=== PATIENT | male | born 1950 | race Caucasian/White ===

== ENCOUNTER 2016-11-04 11:59 | Observation (INO) | payer OTHER ==
[2016-11-04] VITALS (7 sets, daily range): BP systolic 138–165; BP diastolic 75–86; PULSE 58–68; RESP 18–20; TEMP 97.9–99.1; O2SAT 94–99
[~2016-11-04] VITALS: Ht 182.9 cm; Wt 95.0 kg
[~2016-11-04 11:59] MED LIST: ADVI200C9 PO; B COTAB3 PO; GLUC500C56 PO; TAB-TAB PO; VITA500T10 PO; ZOCO80TA PO
--- NOTE | 2016-11-04 12:03 | PD ---
Physical Exam Date Seen by Provider: Nov 04, 2016 Time Seen by Provider: 12:02 Narrative 65 yo male here for chest pain x 10 days. Nothing makes it better. Not going away which is what worried him. Worst with deep breaths. Pain is 4/10. he thought he might have pulled a muscle. No other complaints. Vitals are stable in triage. Awaiting bed placement. Data Data Last Documented VS Vital Signs Date Time Temp Pulse Resp B/P Pulse Ox O2 Delivery O2 Flow Rate FiO2 11/04/16 12:01 97.9 68 20 163/86 99 Room Air [facility] Medical Record Reviewed: Yes Supervised Visit with ROCKY: No Santos Hoff Nov 04, 2016 12:03
--- NOTE | 2016-11-04 12:10 | PD ---
HPI . chest pain for 10 days Chief Complaint: Chest Pain Time Seen by Provider: 12:10 Travel History International Travel<30 days: No Contact w/Intl Traveler<30days: No Traveled to known affect area: No History of Present Illness HPI 65-year-old male with history of hyperlipidemia here with complaints of chest pain that has been constant for the past 10 days. Patient says that he is fighting some type of flulike illness and has been coughing intermittently. The chest pain is located substernally without radiation elsewhere. He rates the pain as 4-5/10. He denies any nausea, vomiting or diaphoresis. He also denies any shortness of breath. He has no other complaints. His primary care providers Dr. Edwards. He has also seen Dr. Aguayo in the past for cardiac workup. He tells me that about 5-6 years ago he had a full cardiac workup that was negative. 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) Diabetes: No Glaucoma: No Hepatitis: No Hiatal Hernia: No Hypertension: No Thyroid Disease: No Past Surgical History Abdominal Surgery: Yes (APPENDECTOMY CHILDHOOD) Genitourinary Surgery: Yes (1998 TUR-BT) Pacemaker: No Social History Alcohol Use: Yes (SOCIALLY) Tobacco Use: Yes Allergies-Medications (Allergen,Severity, Reaction): Coded Allergies: Penicillin (Verified Allergy, Unknown, 11/04/16) Reported Meds & Prescriptions Reported Meds & Active Scripts Active Review of Systems General / Constitutional: No: Fever Eyes: No: Visual changes HENT: No: Headaches Cardiovascular: Positive: Chest Pain or Discomfort Respiratory: Positive: Cough, No: Shortness of Breath Gastrointestinal: No: Abdominal Pain Genitourinary: No: Dysuria Musculoskeletal: No: Pain Skin: No Rash Neurologic: No: Weakness Psychiatric: No: Depression Endocrine: No: Polydipsia Hematologic/Lymphatic: No: Easy Bruising Physical Exam Narrative GENERAL: AAO x 3, no acute distress, Well-nourished, well-developed patient. SKIN: Warm and dry. No visible rashes or bruising. HEAD: Normocephalic and atraumatic. EYES: No scleral icterus. No injection or drainage. EOM intact, PERRLA ENT: No nasal drainage noted. Mucous membranes pink. Airway patent. NECK: Supple, trachea midline. No JVD. CARDIOVASCULAR: Regular rate and rhythm without murmurs, gallops, or rubs. non- reproducible chest pain RESPIRATORY: Breath sounds equal bilaterally. No accessory muscle use. No rhonchi or rales. GASTROINTESTINAL: Abdomen soft, non-tender, nondistended. no rebound or guarding EXTREMITIES: No cyanosis or edema. BACK: No obvious deformity. 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 Data Data Last Documented VS Vital Signs Date Time Temp Pulse Resp B/P Pulse Ox O2 Delivery O2 Flow Rate FiO2 11/04/16 12:15 65 156/84 156/84 11/04/16 12:14 18 98 Room Air 11/04/16 12:01 97.9 Orders Electrocardiogram (11/04/16 12:10) Basic Metabolic Panel (Bmp) (11/04/16 12:10) Ckmb (Isoenzyme) Profile (11/04/16 12:10) Complete Blood Count With Diff (11/04/16 12:10) Magnesium (Mg) (11/04/16 12:10) Prothrombin Time / Inr (Pt) (11/04/16 12:10) Act Partial Throm Time (Ptt) (11/04/16 12:10) Troponin I (11/04/16 12:10) Chest, Single Ap (11/04/16 12:10) Ecg Monitoring (11/04/16 12:10) Bilateral Bp Monitoring (11/04/16 12:10) Iv Access Insert/Monitor (11/04/16 12:10) Oximetry (11/04/16 12:10) Oxygen Administration (11/04/16 12:10) Sodium Chloride 0.9% Flush (Ns Flush) (11/04/16 12:15) CKMB (11/04/16 12:18) CKMB% (11/04/16 12:18) Ns (Bolus) Inj (11/04/16 13:30) Labs Laboratory Tests Test 11/04/16 12:18 White Blood Count 5.6 TH/MM3 Red Blood Count 5.45 MIL/MM3 Hemoglobin 16.4 GM/DL Hematocrit 48.0 % Mean Corpuscular Volume 88.1 FL Mean Corpuscular Hemoglobin 30.1 PG Mean Corpuscular Hemoglobin 34.2 % Concent Red Cell Distribution Width 14.1 % Platelet Count 174 TH/MM3 Mean Platelet Volume 8.2 FL Neutrophils (%) (Auto) 44.7 % Lymphocytes (%) (Auto) 43.9 % Monocytes (%) (Auto) 7.6 % Eosinophils (%) (Auto) 3.2 % Basophils (%) (Auto) 0.6 % Neutrophils # (Auto) 2.5 TH/MM3 Lymphocytes # (Auto) 2.5 TH/MM3 Monocytes # (Auto) 0.4 TH/MM3 Eosinophils # (Auto) 0.2 TH/MM3 Basophils # (Auto) 0.0 TH/MM3 CBC Comment DIFF FINAL Differential Comment Prothrombin Time 10.6 SEC Prothromb Time International 1.0 RATIO Ratio Activated Partial 31.2 SEC Thromboplast Time Sodium Level 138 MEQ/L Potassium Level 4.1 MEQ/L Chloride Level 106 MEQ/L Carbon Dioxide Level 25.5 MEQ/L Anion Gap 7 MEQ/L Blood Urea Nitrogen 21 MG/DL Creatinine 1.37 MG/DL Estimat Glomerular Filtration 52 ML/MIN Rate Random Glucose 98 MG/DL Calcium Level 9.1 MG/DL Magnesium Level 2.1 MG/DL Total Creatine Kinase 150 U/L Troponin I LESS THAN 0.02 NG/ML MDM Medical Decision Making Medical Screen Exam Complete: Yes Emergency Medical Condition: Yes Medical Record Reviewed: Yes Differential Diagnosis bronchitis, Angina, ACS, Narrative Course 65-year-old male here with complaints of 10 days worth of chest pain. IV access obtained. Patient placed on continuous cardiac monitoring and pulse oximetry. EKG has been ordered. It was reviewed by Dr. Frey. Labs and imaging have been ordered. Last Impressions Chest X-Ray 11/04/16 1210 Signed Impressions: Service Date/Time: Friday, November 04, 2016 12:32 - CONCLUSION: No acute disease. Galen Cerda MD Laboratory Tests Test 11/04/16 12:18 White Blood Count 5.6 TH/MM3 Red Blood Count 5.45 MIL/MM3 Hemoglobin 16.4 GM/DL Hematocrit 48.0 % Mean Corpuscular Volume 88.1 FL Mean Corpuscular Hemoglobin 30.1 PG Mean Corpuscular Hemoglobin 34.2 % Concent Red Cell Distribution Width 14.1 % Platelet Count 174 TH/MM3 Mean Platelet Volume 8.2 FL Neutrophils (%) (Auto) 44.7 % Lymphocytes (%) (Auto) 43.9 % Monocytes (%) (Auto) 7.6 % Eosinophils (%) (Auto) 3.2 % Basophils (%) (Auto) 0.6 % Neutrophils # (Auto) 2.5 TH/MM3 Lymphocytes # (Auto) 2.5 TH/MM3 Monocytes # (Auto) 0.4 TH/MM3 Eosinophils # (Auto) 0.2 TH/MM3 Basophils # (Auto) 0.0 TH/MM3 CBC Comment DIFF FINAL Differential Comment Prothrombin Time 10.6 SEC Prothromb Time International 1.0 RATIO Ratio Activated Partial 31.2 SEC Thromboplast Time Sodium Level 138 MEQ/L Potassium Level 4.1 MEQ/L Chloride Level 106 MEQ/L Carbon Dioxide Level 25.5 MEQ/L Anion Gap 7 MEQ/L Blood Urea Nitrogen 21 MG/DL Creatinine 1.37 MG/DL Estimat Glomerular Filtration 52 ML/MIN Rate Random Glucose 98 MG/DL Calcium Level 9.1 MG/DL Magnesium Level 2.1 MG/DL Total Creatine Kinase 150 U/L Troponin I LESS THAN 0.02 NG/ML Discussed results with patient and recommend admission the chest pain center for overnight observation. He does carry some risk factors of tobaccoism, HTN, and HLD. 1323: Discussed with Dr. Edwards. Patient will follow-up with him after hospital workup. Case discussed with my attending Dr. Frey. Patient verbalized understanding of instructions, questions were answered, and thanked me for their care. Diagnosis Primary Impression: Chest pain Qualified Code: R07.9 - Chest pain, unspecified type Admitting Information Admitting Physician Requests: Admit Condition: Stable Alecia Jovel Nov 04, 2016 12:10
[2016-11-04] MEDS ORDERED: SODIUM CHLORIDE 0.9% FLUSH 10 ML FLUSH IVF PRN (12:15)
[2016-11-04 12:42] LABS: AUTOMATED NEUTROPHIL # 2.5 TH/MM3 (1.8-7.7); BASOPHIL % 0.6 % (0.0-2.0); EOSINOPHIL # 0.2 TH/MM3 (0-0.4); EOSINOPHIL % 3.2 % (0.0-4.0); HEMO FLAGS DIFF FINAL; LYMPH % 43.9 % (9.0-44.0); LYMPHOCYTE # 2.5 TH/MM3 (1.0-4.8); MEAN CELL VOLUME 88.1 FL (80.0-100.0); MEAN CORPUSCULAR HEMOGLOBIN 30.1 PG (27.0-34.0); MEAN CORPUSCULAR HGB CONC 34.2 % (32.0-36.0); MONO % 7.6 % (0.0-8.0); NEUT % 44.7 % (16.0-70.0); PLATELET COUNT 174 TH/MM3 (150-450); RED BLOOD COUNT 5.45 MIL/MM3 (4.50-5.90); RED CELL DISTRIBUTION WIDTH 14.1 % (11.6-17.2); WHITE BLOOD COUNT 5.6 TH/MM3 (4.0-11.0)
[2016-11-04 12:48] LABS: APTT (PATIENT) 31.2 SEC (24.3-30.1); PROTHROMBIN TIME - PATIENT 10.6 SEC (9.8-11.6)
--- NOTE | 2016-11-04 13:06 | RADRPT ---
EXAM DATE/TIME: 11/04/2016 12:32 [facility] COMPARISON: No previous studies available for comparison. INDICATIONS : Chest pain for several hours. MEDICAL HISTORY : None. SURGICAL HISTORY : None. ENCOUNTER: Initial ACUITY: 1 day PAIN SCORE: 7/10 LOCATION: Bilateral mid chest FINDINGS: A single view of the chest demonstrates the lungs to be symmetrically aerated without evidence of mas s, infiltrate or effusion. The cardiomediastinal contours are unremarkable. Osseous structures are intact. CONCLUSION: No acute disease. Galen Cerda MD on November 04, 2016 at 13:04 Board Certified Radiologist. This report was verified electronically.
[2016-11-04 13:10] LABS: ANION GAP 7 MEQ/L (5-15); BICARBONATE 25.5 MEQ/L (21.0-32.0); BLOOD UREA NITROGEN 21 MG/DL (7-18); CHLORIDE 106 MEQ/L (98-107); GLOMERULAR FILTRATION RATE 52 ML/MIN (>89); MAGNESIUM 2.1 MG/DL (1.5-2.5); POTASSIUM 4.1 MEQ/L (3.5-5.1); SODIUM (NA) 138 MEQ/L (136-145)
[2016-11-04 13:13] LABS: CREATINE KINASE 150 U/L (39-308)
[2016-11-04 13:25] LABS: CKMB 0.9 NG/ML (0.5-3.6)
[2016-11-04] MEDS ORDERED: SODIUM CHLOR 0.9% 1000 ML INJ 1,000 ML IV ONE (13:30)
[2016-11-04] MEDS ORDERED: [UNRECOGNIZED DRUG - REMARK] (14:27)
[2016-11-04] MEDS ORDERED: ONDANSETRON HCL 4 MG/2 ML VIAL IV PRN (15:45)
[2016-11-04] MEDS ORDERED: ALPRAZolam 0.25 MG TAB PO PRN (15:45)
[2016-11-04] MEDS ORDERED: ACETAMINOPHEN 500 MG CPLT PO PRN (15:45)
[2016-11-04] MEDS ORDERED: SODIUM CHLORIDE 0.9% FLUSH 5 ML FLUSH IVF PRN (15:45)
[2016-11-04] MEDS ORDERED: ACETAMINOPHEN/HYDROcodone 325 MG/7.5 MG TAB PO PRN (15:45)
--- NOTE | 2016-11-04 16:15 | HHI.HP ---
HPI Primary Care Physician Wilder Edwards MD Chief Complaint Chest pain History of Present Illness This is a 65-year-old male that presents to the ED with a complaint of 10 days of intermittent chest discomfort. The discomfort is just to the right of the center of his chest. He describes as a tightness. It last 10-20 seconds. Over last couple days it is been occurring quite often throughout the day with each episode lasting 10-20 seconds. No associated shortness breath, nausea, or diaphoresis. He also states her last 4 days had a cough. For the most part nonproductive but occasionally yellow color mucus will be produced. Denies fevers. Denies recent travel. Denies history of CAD. He states he had a stress test with Dr. Aguayo 4 years ago and states that it was okay and has not followed her since. He states he spoke with his PCP today who advised him to come to the ED. Review of Systems General: Patient denies fevers, chills recent, and recent travel HEENT: Patient denies headache, sore throat, difficulty swallowing. Cardiovascular: Has the chest discomfort as mentioned above. Denies sensation of heart beating rapidly or irregularly. No syncope. Denies diaphoresis. Respiratory: Denies shortness of breath or inspirational chest discomfort. Denies coughing wheezing or hemoptysis. GI: Patient denies nausea, vomiting, diarrhea, abdominal pain, bloody stools. Musculoskeletal: Patient denies joint pain or edema. Denies calf pain or edema. Neurovascular: Patient denies numbness, tingling, weakness in extremities. Denies headache. Endocrine: Denies polyuria and polydipsia. Hematologic: Denies easy bruising. Skin: Denies rash or itching. Past Family Social History Allergies: Coded Allergies: Penicillin (Verified Allergy, Unknown, 11/04/16) Past Medical History Hyperlipidemia and tobacco abuse. Denies hypertension, diabetes, and known CAD. Past Surgical History Noncontributory. Reported Medications Reported Meds & Active Scripts Active Reported [Unknown Statin ] Unknown Dose Active Ordered Medications Current Medications Medications (Trade) Dose Ordered Sig/Yulia Route Start Time Stop Time Status Last Admin (NS Flush) 2 ml UNSCH PRN IVF 11/04/16 15:45 (NS Flush) 2 ml BID IVF 11/04/16 21:00 (Tylenol) 500 mg Q4H PRN PO 11/04/16 15:45 ([place] 7.5-325 Mg) 1 tab Q4H PRN PO 11/04/16 15:45 (Zofran Inj) 4 mg Q6H PRN IV 11/04/16 15:45 (Aspirin) 325 mg DAILY PO 11/05/16 09:00 (Xanax) 0.25 mg Q8H PRN PO 11/04/16 15:45 Family History Denies family history of CAD. Social History Patient smokes currently one half pack of cigarettes daily for 2 years but prior that he smoked one pack of cigarettes daily for 40 years. Rarely has alcohol. Denies illicit drugs. Physical Exam Vital Signs Vital Signs Date Time Temp Pulse Resp B/P Pulse Ox O2 Delivery O2 Flow Rate FiO2 11/04/16 15:12 98.9 58 18 153/78 98 11/04/16 14:08 60 18 165/80 97 Room Air 11/04/16 12:15 65 156/84 156/84 11/04/16 12:14 18 98 Room Air 11/04/16 12:08 99 Room Air 11/04/16 12:01 97.9 68 20 163/86 99 Room Air Physical Exam GENERAL: This is a well-nourished, well-developed patient, in no apparent distress. Patient speaks in clear complete sentences. Patient is pleasant. HEENT: Head is atraumatic and normocephalic. Neck is supple without lymphadenopathy and trachea is midline. No JVD or carotid bruits. CARDIOVASCULAR: Regular rate and rhythm without murmurs, gallops, or rubs. RESPIRATORY: Clear to auscultation. Breath sounds equal bilaterally. No wheezes , rales, or rhonchi. Chest wall is tender with palpation and twisting of the torso. No use of accessory muscles. GASTROINTESTINAL: Abdomen is nontender, nondistended. Abdomen soft. No obvious pulsatile mass or bruit. No CVA tenderness. Strong femoral pulses bilaterally. Normal bowel sounds in all quadrants. MUSCULOSKELETAL: Patient is moving upper and lower extremities freely. No calf tenderness or edema, no Homans sign. Strong pulses in upper and lower extremities. NEUROLOGICAL: Patient is alert and oriented. Cranial nerves 2-12 are grossly intact. No focal deficits and speech is clear. SKIN: No rash and turgor is normal. Laboratory Laboratory Tests Test 11/04/16 12:18 White Blood Count 5.6 Red Blood Count 5.45 Hemoglobin 16.4 Hematocrit 48.0 Mean Corpuscular Volume 88.1 Mean Corpuscular Hemoglobin 30.1 Mean Corpuscular Hemoglobin 34.2 Concent Red Cell Distribution Width 14.1 Platelet Count 174 Mean Platelet Volume 8.2 Neutrophils (%) (Auto) 44.7 Lymphocytes (%) (Auto) 43.9 Monocytes (%) (Auto) 7.6 Eosinophils (%) (Auto) 3.2 Basophils (%) (Auto) 0.6 Neutrophils # (Auto) 2.5 Lymphocytes # (Auto) 2.5 Monocytes # (Auto) 0.4 Eosinophils # (Auto) 0.2 Basophils # (Auto) 0.0 CBC Comment DIFF FINAL Differential Comment Prothrombin Time 10.6 Prothromb Time International 1.0 Ratio Activated Partial 31.2 Thromboplast Time Sodium Level 138 Potassium Level 4.1 Chloride Level 106 Carbon Dioxide Level 25.5 Anion Gap 7 Blood Urea Nitrogen 21 Creatinine 1.37 Estimat Glomerular Filtration 52 Rate Random Glucose 98 Calcium Level 9.1 Magnesium Level 2.1 Total Creatine Kinase 150 Creatine Kinase MB 0.9 Troponin I LESS THAN 0.02 Result Diagram: 11/04/16 1218 11/04/16 1218 Imaging Last 48 hours Impressions Chest X-Ray 11/04/16 1210 Signed Impressions: Service Date/Time: Friday, November 04, 2016 12:32 - CONCLUSION: No acute disease. Galen Cerda MD Course Initial EKG has a right bundle branch block with nonspecific T-wave changes. Assessment and Plan Assessment and Plan * Chest pain: Patient will continue to have serial cardiac enzymes and EKGs for ruling out purposes. He has been evaluated by Dr. Yoni Denise of cardiology in the chest pain center. He will undergo a nuclear ETT in the morning if he rules out. He will be discharged home if the stress test is nonischemic with instructions to follow-up with PCP. He should use anti-inflammatories and moist heat. * Hyperlipidemia: Continue current medication. * Tobacco abuse: Patient has been counseled on the importance of smoking cessation. Patient is agreeable to this plan. He is stable at this time. Savage Melendez Nov 04, 2016 16:15
[2016-11-04] MEDS ORDERED: IBUP800T23 PO (16:23)
[2016-11-04] MEDS ORDERED: ATOR40TA16 PO (16:23)
[2016-11-04 16:36] LABS: CREATINE KINASE 120 U/L (39-308)
[2016-11-04 16:48] LABS: CKMB 0.7 NG/ML (0.5-3.6)
[2016-11-04 19:15] LABS: CREATINE KINASE 132 U/L (39-308)
[2016-11-04 19:27] LABS: CKMB 0.7 NG/ML (0.5-3.6)
[2016-11-04] MEDS: SODIUM CHLORIDE 0.9% FLUSH 5 ML FLUSH IVF SCH (20:40)
[2016-11-05 00:38] VITALS: BP 119/65; PULSE 55; RESP 17; TEMP 98.2; O2SAT 98
[2016-11-05 02:19] VITALS: PULSE 62
[2016-11-05 04:04] VITALS: BP 129/65; PULSE 58; RESP 17; TEMP 98.5; O2SAT 97
[2016-11-05 07:56] VITALS: O2SAT 96
[2016-11-05 08:01] VITALS: BP 129/70; PULSE 56; RESP 18; TEMP 98.7; O2SAT 96
[2016-11-05 08:55] VITALS: PULSE 52
[2016-11-05] MEDS: SODIUM CHLORIDE 0.9% FLUSH 5 ML FLUSH IVF SCH (09:00)
[2016-11-05] MEDS ORDERED: ASPIRIN 325 MG TAB PO SCH (09:00)
[2016-11-05] MEDS ORDERED: REGADENOSON INJ 0.4 MG/5 ML SYR ONE (12:00)
--- NOTE | 2016-11-05 12:57 | RADRPT ---
EXAM DATE/TIME: 11/05/2016 09:57 [facility] COMPARISON: No previous studies available for comparison. INDICATIONS : Mid chest pain for ten days. Angina. Right bundle branch block. DOSE: 26.5 mCi Tc99m Myoview at stress. 8.5 mCi Tc99m Myoview at rest. 0.4 mg Lexiscan STRESS SYMPTOMS: Dyspnea and lightheadedness. EJECTION FRACTION: 62% MEDICAL HISTORY : Smoker. SURGICAL HISTORY : None. ENCOUNTER: Initial ACUITY: 1 week PAIN SCALE: 5/10 LOCATION: Midsternal chest TECHNIQUE: The patient underwent pharmacologic stress with infusion of prescribed dose. Continuous ECG tracing was monitored during stress. Gated SPECT imaging was performed after stress and conventional SPECT i maging was performed at rest. The examination was performed on a SPECT/CT scanner, both attenuation and non-corrected datasets were reviewed. FINDINGS: DISTRIBUTION: The maximum perfused segment at stress is in the anterolateral wall. PERFUSION STUDY: Slightly diminished relative perfusion at the apex may be myocardial thinning. GATED STUDY: There is intact wall motion and thickening without hypokinetic or dyskinetic segments. CONCLUSION: Probably normal exam RISK CATEGORY: Low (<1% Annual Mortality Rate) Galen Cerda MD on November 05, 2016 at 12:53 Board Certified Radiologist. This report was verified electronically.
[2016-11-05] MEDS ORDERED: LISI10TA3 PO (13:07)
--- NOTE | 2016-11-05 13:08 | HHI.DCPOC ---
Discharge Care Plan Diagnosis: (1) Chest pain (2) Hyperlipidemia (3) Tobacco abuse (4) Hypertension Goals to Promote Your Health * To prevent worsening of your condition and complications * To maintain your health at the optimal level Directions to Meet Your Goals Take your medications as prescribed Follow your dietary instruction Follow activity as directed Keep your appointments as scheduled Take your immunizations and boosters as scheduled If your symptoms worsen call your PCP, if no PCP go to Urgent Care Center or Emergency Room Smoking is Dangerous to Your Health. Avoid second hand smoke Call the 24-hour hour crisis hotline for domestic abuse at Savage Melendez Nov 05, 2016 13:08
--- NOTE | 2016-11-05 13:29 | TR ---
Date Performed: 11/05/2016 Time Performed: 11:01:15 DOCTOR: Yandel Villalba DRUG LIST: CLINICAL HISTORY: REASON FOR TEST: REASON FOR ENDING: OBSERVATION: CONCLUSION: ATTEMPTED NUC ETT KRISTIAN PROTOCOL. OCCASIONAL CP LASTING A COUPLE SECONDS. MILD SOB.M aximum FW=736 % Max HR Achieved=71.0% Maximum CW=753/80 Total Exercise Time=8:07 COMMENTS: submaximal stress test,suggest Yanet nuclear scan.
--- NOTE | 2016-11-05 13:31 | TR ---
Date Performed: 11/05/2016 Time Performed: 11:27:34 DOCTOR: Yandel Villalba DRUG LIST: CLINICAL HISTORY: REASON FOR TEST: REASON FOR ENDING: OBSERVATION: CONCLUSION: Lexiscan stress test was performed under standard four minute protocol. Radionucl[place] e was injected one minute prior to ending the test. No electrocardiographic abormalities were present to suggest ischemia. Nuclear imaging and interpretation are pending. COMMENTS:
--- NOTE | 2016-11-05 13:38 | EKG ---
Date Performed: 11/04/2016 Time Performed: 15:56:54 PTAGE: 65 years EKG: SINUS BRADYCARDIA INDETERMINATE AXIS RIGHT BUNDLE BRANCH BLOCK MODERATE T-WAVE ABNORMALITY, CONSIDER LATERAL ISCHEMIA ABNORMAL ECG PREVIOUS TRACING : 11/04/2016 12.24 Since previous tracing, no significant change noted DOCTOR: Yandel Villalba Interpretating Date/Time 11/05/2016 13:37:37
--- NOTE | 2016-11-05 13:38 | EKG ---
Date Performed: 11/04/2016 Time Performed: 18:47:51 PTAGE: 65 years EKG: Sinus rhythm INDETERMINATE AXIS RIGHT BUNDLE BRANCH BLOCK MODERATE T-WAVE ABNORMALITY, CONSIDER LATERAL ISCHEMIA ABNORMAL ECG PREVIOUS TRACING : 11/04/2016 15.56 Since previous tracing, no significant change noted DOCTOR: Yandel Villalba Interpretating Date/Time 11/05/2016 13:37:02
--- NOTE | 2016-11-05 13:45 | EKG ---
Date Performed: 11/04/2016 Time Performed: 12:24:20 PTAGE: 65 years EKG: Sinus rhythm INDETERMINATE AXIS RIGHT BUNDLE BRANCH BLOCK ABNORMAL ECG INTERPRETATION BASED ON A DEFAULT AGE OF [address] segment and T wave changes PREVIOUS TRACING : 01/24/2008 12.43 Since previous tracing, no significant change noted DOCTOR: Yandel Villalba Interpretating Date/Time 11/09/2016 07:58:19
== END 2016-11-05 13:37 | disposition home or self-care (01) ==
LOC: NEPE 11:59 → NEDA 13:27 → NEPGCP 15:16
PROVIDERS: ADMIT Internal Medicine Cardiovascular Disease; ATTEND Internal Medicine Cardiovascular Disease
DX: R07.89 Other chest pain (principal); E78.5 Hyperlipidemia, unspecified; I10 Essential (primary) hypertension; F17.210 Nicotine dependence, cigarettes, uncomplicated; I45.4 Nonspecific intraventricular block; Z85.51 Personal history of malignant neoplasm of bladder
CPT/HCPCS: 71010; 78452; 80048; 82550; 82552; 83735; 84484; 85025; 85610; 85730; 93005; 93017; 99285; A9502; G0378; J2785; J7030